=== PATIENT | male | born 1975 | race Two or more races ===

== ENCOUNTER 2018-01-02 13:39 | Inpatient (IN) | payer MEDICAID, OTHER ==
[2018-01-02] MEDS ORDERED: SOD CHLORIDE 0.9% 1,000 ML IV (18:00)
[2018-01-02] MEDS: KETOROLAC 15 MG INJ IV (18:28)
[2018-01-02] MEDS: ONDANSETRON 4 MG INJ IV (18:28)
[2018-01-02 18:29] LABS: ADD MAN DIFF? NO
[2018-01-02 18:35] LABS: BASOPHILS % 0.3 % (0.0-2.0); EOSINOPHILS # 0.1 10^3/ul (0.0-0.5); HEMATOCRIT 40.6 % (42.0-52.0); HEMOGLOBIN 13.8 g/dl (14.0-18.0); LYMPHOCYTES # 1.7 10^3/ul (0.8-2.9); LYMPHOCYTES % 24.1 % (15.0-51.0); MEAN CORPUSCULAR HEMOGLOBIN 29.2 pg (29.0-33.0); MEAN CORPUSCULAR VOLUME 85.8 fl (82.0-101.0); MONOCYTE # 0.6 10^3/ul (0.3-0.9); MONOCYTES % 8.4 % (0.0-11.0); NEUTROPHIL # 4.5 10^3/ul (1.6-7.5); NEUTROPHILS % 64.9 % (39.0-77.0); PLATELET COUNT 127 10^3/UL (140-415); POSITIVE DIFF @See below; RED BLOOD COUNT 4.73 10^6/ul (4.70-6.10); RED CELL DISTRIBUTION WIDTH 14.2 % (11.5-14.5)
[2018-01-02 18:35] LABS: WHITE BLOOD COUNT 6.9 10^3/ul (4.8-10.8)
[2018-01-02] MEDS: SODIUM CHLORIDE 0.9% 1L BAG IV* (18:38)
[2018-01-02 18:42] LABS: AADO2 Arterial 15.1 mmHg (7.0-24.0); Allen Test ACCEPTAB; Arterial Base Excess 1.2 mmol/L (-3.0-3); Arterial Blood Gas Oxygen Sat 96.4 mmHG (95.0-98.0); Arterial COHb 0.5 % (0.0-3.0); Arterial Fraction of Oxyhgb 95.6 % (93.0-99.0); Arterial MetHb 0.3 % (0.0-1.5); Arterial Total Hemglobin 13.9 g/dl (12.0-18.0); Arterial pCO2 41.9 mmhg (35-45); MEAN PLATELET VOLUME 11.3 fl (7.4-10.4); MODE ROOM AIR; Site Left Radial
[2018-01-02 18:50] LABS: INR 1.05; PROTIME 13.8 Sec (11.9-14.9); PT RATIO 1.1
[2018-01-02 18:51] LABS: PARTIAL THROMBOPLASTIN TIME 38.4 Sec (23.0-35.0)
[2018-01-02 18:53] LABS: LACTIC ACID 0.8 mmol/L (0.5-2.0)
[2018-01-02 18:57] LABS: ALANINE AMINOTRANSFERASE 28 IU/L (13-69); ALBUMIN 4.6 g/dl (3.3-4.9); ALBUMIN/GLOBULIN RATIO 1.39; ALKALINE PHOSPHATASE 67 IU/L (42-121); ANION GAP 12 (5-13); ASPARTATE AMINO TRANSFERASE 21 IU/L (15-46); BILIRUBIN,INDIRECT 1.1 mg/dl (0-1.1); BILIRUBIN,TOTAL 1.1 mg/dl (0.2-1.3); BLOOD UREA NITROGEN 8 mg/dl (7-20); CALCIUM 9.3 mg/dl (8.4-10.2); CARBON DIOXIDE 30 mmol/L (21-31); CHLORIDE 101 mmol/L (97-110); CREATININE 0.63 mg/dl (0.61-1.24); Estimated GFR > 60 mL/min (>60); GLUCOSE 94 mg/dl (70-220); LIPASE 68 U/L (23-300); POTASSIUM 3.5 mmol/L (3.5-5.1); SODIUM 143 mmol/L (135-144); TOTAL PROTEIN 7.9 g/dl (6.1-8.1)
[2018-01-02 19:06] LABS: TROPONIN-I < 0.012 ng/ml (0.000-0.120)
[2018-01-02 19:07] LABS: C-REACTIVE PROTEIN 20.5 mg/dl (0.0-0.9)
[2018-01-02 19:08] LABS: D-DIMER 5817.16 ng/ml (<460)
[2018-01-02] MEDS: SOD CHLORIDE 0.9% 100 ML (20:07)
[2018-01-02] MEDS: IOHEXOL 100 ML (20:07)
[2018-01-02] MEDS: ASPIRIN 81 MG TAB PO (20:43)
[2018-01-02] MEDS ORDERED: NITROGLYCERIN (SL) 0.4 MG TAB SL (22:00)
[2018-01-02] MEDS ORDERED: ACETAMINOPHEN 325 MG TAB PO (22:00)
[2018-01-02] MEDS: ASPIRIN (EC) 81 MG TAB PO (23:47)
[2018-01-03] MEDS ORDERED: morphine 2 MG INJ IV (00:30)
[2018-01-03] MEDS: DEXTROSE 5%-0.45% NACL 1,000 ML IV ×2 (01:14→21:07)
[2018-01-03 05:57] LABS: ADD MAN DIFF? NO
[2018-01-03 06:04] LABS: WHITE BLOOD COUNT 6.8 10^3/ul (4.8-10.8)
[2018-01-03 06:04] LABS: BASOPHILS % 0.4 % (0.0-2.0); EOSINOPHILS # 0.2 10^3/ul (0.0-0.5); EOSINOPHILS % 3.1 % (0.0-7.0); HEMOGLOBIN 12.6 g/dl (14.0-18.0); LYMPHOCYTES # 1.7 10^3/ul (0.8-2.9); LYMPHOCYTES % 25.4 % (15.0-51.0); MEAN CORPUSCULAR HEMOGLOBIN 28.9 pg (29.0-33.0); MEAN CORPUSCULAR HGB CONC 34.1 g/dl (32.0-37.0); MEAN CORPUSCULAR VOLUME 84.9 fl (82.0-101.0); MEAN PLATELET VOLUME 11.4 fl (7.4-10.4); MONOCYTE # 0.5 10^3/ul (0.3-0.9); MONOCYTES % 7.7 % (0.0-11.0); NEUTROPHIL # 4.3 10^3/ul (1.6-7.5); NEUTROPHILS % 63.1 % (39.0-77.0); PLATELET COUNT 125 10^3/UL (140-415); POSITIVE DIFF @See below; RED BLOOD COUNT 4.36 10^6/ul (4.70-6.10); RED CELL DISTRIBUTION WIDTH 14.1 % (11.5-14.5)
[2018-01-03 06:21] LABS: INR 1.05; PROTIME 13.8 Sec (11.9-14.9); PT RATIO 1.1
[2018-01-03 06:22] LABS: PARTIAL THROMBOPLASTIN TIME 38.2 Sec (23.0-35.0)
[2018-01-03 06:29] LABS: ALANINE AMINOTRANSFERASE 26 IU/L (13-69); ALBUMIN 3.8 g/dl (3.3-4.9); ALKALINE PHOSPHATASE 62 IU/L (42-121); ASPARTATE AMINO TRANSFERASE 22 IU/L (15-46); BILIRUBIN,INDIRECT 0.7 mg/dl (0-1.1); BILIRUBIN,TOTAL 0.7 mg/dl (0.2-1.3); CHOL/HDL RATIO 7.3 RATIO; CHOLESTEROL 147 mg/dl (100-200); HDL CHOLESTEROL 20 mg/dl (27-67); LDL CHOLESTEROL,CALCULATED 60 mg/dl; TOTAL PROTEIN 6.3 g/dl (6.1-8.1); TRIGLYCERIDES 337 mg/dl (0-149)
[2018-01-03 06:45] LABS: ANION GAP 11 (5-13); BLOOD UREA NITROGEN 9 mg/dl (7-20); CALCIUM 8.7 mg/dl (8.4-10.2); CARBON DIOXIDE 23 mmol/L (21-31); CHLORIDE 108 mmol/L (97-110); CREATININE 0.61 mg/dl (0.61-1.24); Estimated GFR > 60 mL/min (>60); GLUCOSE 112 mg/dl (70-220); LIPASE 50 U/L (23-300); POTASSIUM 3.9 mmol/L (3.5-5.1); SODIUM 142 mmol/L (135-144)
[2018-01-03 08:14] LABS: HEMOGLOBIN A1C 4.5 % (0-5.9)
[2018-01-03] MEDS: ASPIRIN (EC) 81 MG TAB PO (09:19)
[2018-01-03] MEDS: ENOXAPARIN 40 MG/0.4 ML SYG SC (09:26)
[2018-01-03 18:45] LABS: CREATINE KINASE 21 IU/L (23-200)
[2018-01-03 18:59] LABS: CK-MB < 0.22 ng/ml (0.0-2.4); TROPONIN-I < 0.012 ng/ml (0.000-0.120)
[2018-01-04 01:03] LABS: CREATINE KINASE < 20 IU/L (23-200)
[2018-01-04 01:12] LABS: CK-MB < 0.22 ng/ml (0.0-2.4); TROPONIN-I < 0.012 ng/ml (0.000-0.120)
[2018-01-04 06:15] LABS: ADD MAN DIFF? NO
[2018-01-04 06:23] LABS: BASOPHILS % 0.5 % (0.0-2.0); EOSINOPHILS # 0.2 10^3/ul (0.0-0.5); EOSINOPHILS % 3.3 % (0.0-7.0); HEMATOCRIT 36.7 % (42.0-52.0); HEMOGLOBIN 12.6 g/dl (14.0-18.0); LYMPHOCYTES # 1.9 10^3/ul (0.8-2.9); LYMPHOCYTES % 30.3 % (15.0-51.0); MEAN CORPUSCULAR HGB CONC 34.3 g/dl (32.0-37.0); MEAN CORPUSCULAR VOLUME 84.6 fl (82.0-101.0); MEAN PLATELET VOLUME 11.9 fl (7.4-10.4); MONOCYTE # 0.3 10^3/ul (0.3-0.9); MONOCYTES % 4.1 % (0.0-11.0); NEUTROPHIL # 3.9 10^3/ul (1.6-7.5); NEUTROPHILS % 61.3 % (39.0-77.0); PLATELET COUNT 139 10^3/UL (140-415); RED BLOOD COUNT 4.34 10^6/ul (4.70-6.10); RED CELL DISTRIBUTION WIDTH 14.2 % (11.5-14.5)
[2018-01-04 06:23] LABS: WHITE BLOOD COUNT 6.3 10^3/ul (4.8-10.8)
[2018-01-04 06:41] LABS: ANION GAP 12 (5-13); BLOOD UREA NITROGEN 10 mg/dl (7-20); CALCIUM 9.2 mg/dl (8.4-10.2); CARBON DIOXIDE 25 mmol/L (21-31); CHLORIDE 105 mmol/L (97-110); CREATININE 0.62 mg/dl (0.61-1.24); Estimated GFR > 60 mL/min (>60); GLUCOSE 107 mg/dl (70-220); SODIUM 142 mmol/L (135-144)
[2018-01-04] MEDS: ASPIRIN (EC) 81 MG TAB PO (08:16)
[2018-01-04] MEDS: ENOXAPARIN 40 MG/0.4 ML SYG SC (09:50)
[2018-01-04] MEDS: REGADENOSON 0.4 MG/5 ML SYG (11:55)
== END 2018-01-04 17:35 | disposition home or self-care (01) | DRG 313 ==
LOC: E/R 13:39 → 6WM 01-03 14:37
PROVIDERS: Internal Medicine
DX: R07.9 Chest pain, unspecified (principal); E78.5 Hyperlipidemia, unspecified; I10 Essential (primary) hypertension; R42 Dizziness and giddiness; M04.1 Periodic fever syndromes; Z79.82 Long term (current) use of aspirin
CPT/HCPCS: 36415; 36600; 70450; 71045; 71275; 78452; 80048; 80053; 80061; 80076; 82550; 82553; 82803; 83036; 83605; 83690; 84145; 84443; 84484; 85025; 85378; 85610; 85730; 86140; 87040; 93005; 93017; 93306; 93970; 96374; 96375; 99285-25